=== PATIENT | male | born 1940 | race Two or more races ===

== ENCOUNTER → 2021-01-25 | Emergency (ER) | payer MEDICARE, OTHER ==
[~2021-01-25] VITALS: Ht 167.6 cm; Wt 59.9 kg
[~2021-01-25] MED LIST: HYDROCODONE/APAP 5/325MG TABLET ONE
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
--- NOTE | 2021-01-25 11:30 | NUR ---
PATIENT SEEN BY DR HAMMOND.
--- NOTE | 2021-01-25 11:50 | NUR ---
PATIENT GETTING CT DONE AT THIS TIME.
--- NOTE | 2021-01-25 12:10 | NUR ---
THE PATIENT IS BACK FROM CT. PATIENT IN NO APPARENT DISTRESS.
[2021-01-25] MEDS: HYDROCODONE/APAP 5/325MG TABLET PO ONE (12:39)
[2021-01-25 12:52] VITALS: BP 122/80
--- NOTE | 2021-01-25 13:40 | NUR ---
Patient discharged to home in stable condition. Written and verbal after care instructions given. Patient and the son verbalizes understanding of instruction. The left the hopsital in stable condition.
== END | disposition home or self-care (01) ==
LOC: ER 11:19
DX: S50.01XA Contusion of right elbow, initial encounter (principal); S70.01XA Contusion of right hip, initial encounter; S00.83XA Contusion of other part of head, initial encounter; I10 Essential (primary) hypertension; V02.99XA Pedestrian with other conveyance injured in collision with two- or three-wheeled motor vehicle, unspecified whether traffic or nontraffic accident, initial encounter; Y93.89 Activity, other specified; Y92.89 Other specified places as the place of occurrence of the external cause; Y99.8 Other external cause status
CPT/HCPCS: 70450; 72170; 73080; 99284; A6403